=== PATIENT | male | born 1965 | race Caucasian/White ===

== ENCOUNTER 2018-09-06 09:56 | Outpatient (CLI) | payer BC ==
--- NOTE | 2018-09-06 10:38 | RAD ---
RIGHT KNEE THREE VIEWS: History: Right knee pain. FINDINGS/IMPRESSION: No fracture, dislocation, or bony destruction is seen. POS: OFF
== END 2018-09-06 09:57 | disposition home or self-care (01) ==
LOC: BICRAD 09:56
PROVIDERS: ATTEND Family Medicine
DX: M25.561 Pain in right knee (principal)

== ENCOUNTER 2019-11-08 12:42 | Outpatient (CLI) | payer OTHER ==
--- NOTE | 2019-11-08 14:49 | RAD ---
CERVICAL SPINE SERIES TWO VIEWS: 11/08/19 HISTORY: Neck pain. Vertebral bodies are normal in height. There is degenerative disc narrowing at the C6-7 level. Minima l anterolisthesis of C4 on C6 is noted. Not appreciably changed in between the flexion and extension views. There are arthritic changes of the facet joints. IMPRESSION: Arthritic changes of the spine. POS: IVON
== END 2019-11-08 12:43 | disposition home or self-care (01) ==
LOC: TBSIIMAG 12:42
PROVIDERS: ATTEND Neurological Surgery
DX: M54.2 Cervicalgia (principal); M46.92 Unspecified inflammatory spondylopathy, cervical region
CPT/HCPCS: 72040